=== PATIENT | female | born 1940 | race American Indian/Alaskan Native ===

== ENCOUNTER 2017-07-28 21:04 | Emergency (ER) | payer BC, MEDICARE, OTHER ==
[2017-07-28 21:47] VITALS: BMI 28.1
[2017-07-28 22:06] VITALS: RESP 18; TEMP 97.8
--- NOTE | 2017-07-28 22:17 | ED PDOC ---
Arrival/HPI - General Chief Complaint: Dizziness/Lightheaded Time Seen by Provider: 07/28/17 21:40 Historian: Patient - History of Present Illness Narrative History of Present Illness (Text): 07/28/17 22:16 A 76 year old female presents to the emergency department from home complaining of dizziness. Patient was bending over and felt room spinning sensation, dizziness and lost her balance. Denies hitting her head or loss of consciousness. Patient denies any pain. Dizziness sensation lasting about 10 minutes. Patient reports she is able to walk, but concerned because she still feels pressure at this left side of head, worried she is having a stroke. Patient denies any other complaints at this time. Symptom Onset: Sudden Symptom Course: Unchanged Activities at Onset: Rest Context: Home Past Medical History - Provider Review Nursing Documentation Reviewed: Yes - Infectious Disease Hx of Infectious Diseases: None - Hematological/Oncological Hx Anemia: Yes - Psychiatric Hx Substance Use: No - Surgical History Hx Tonsillectomy: Yes - Anesthesia Hx Anesthesia: Yes Family/Social History - Physician Review Nursing Documentation Reviewed: Yes Family/Social History: No Known Family HX Smoking Status: Never Smoked Hx Alcohol Use: No Hx Substance Use: No Allergies/Home Meds Allergies/Adverse Reactions: Allergies No Known Allergies Allergy (Verified 08/09/15 11:52) Home Medications: Home Meds Medication Instructions Recorded Confirmed Atorvastatin [Lipitor] 40 mg PO HS 08/09/15 08/09/15 Review of Systems - Physician Review All systems were reviewed & negative as marked: Yes - Review of Systems Constitutional: absent: Fevers Neurological: Dizziness. absent: Gait Changes Physical Exam Vital Signs Reviewed: Yes Vital Signs Temp Pulse Resp BP Pulse Ox 07/29/17 00:30 60 18 135/67 100 07/29/17 00:00 59 L 18 142/67 100 07/28/17 22:00 97.8 F 62 18 126/66 98 Temperature: Afebrile Blood Pressure: Normal Pulse: Regular Respiratory Rate: Normal Appearance: Positive for: Well-Appearing, Non-Toxic, Comfortable Pain Distress: None Mental Status: Positive for: Alert and Oriented X 3 - Systems Exam Head: Present: Atraumatic, Normocephalic Pupils: Present: PERRL Extroacular Muscles: Present: Other (horizontal nystagmus) Conjunctiva: Present: Normal Mouth: Present: Moist Mucous Membranes Neck: Present: Normal Range of Motion Respiratory/Chest: Present: Clear to Auscultation, Good Air Exchange. No: Respiratory Distress, Accessory Muscle Use Cardiovascular: Present: Regular Rate and Rhythm, Normal S1, S2. No: Murmurs Abdomen: Present: Normal Bowel Sounds. No: Tenderness, Distention, Peritoneal Signs Back: Present: Normal Inspection Upper Extremity: Present: Normal Inspection. No: Cyanosis, Edema Lower Extremity: Present: Normal Inspection. No: Edema Neurological: Present: GCS=15, CN II-XII Intact, Speech Normal, Other ( horizontal nystagmus) Skin: Present: Warm, Dry, Normal Color. No: Rashes Psychiatric: Present: Alert, Oriented x 3, Normal Insight, Normal Concentration Medical Decision Making ED Course and Treatment: 07/28/17 22:14 Impression: A 76 year old female with dizziness. Plan: -- CT head -- chest xray -- labs -- Reassess and disposition Progress Notes: 07/28/17 23:13 chest xray: No active disease, as read by me. EKG: Ordered, reviewed, and independently interpreted the EKG. Rate : 62 BPM Rhythm : NSR Interpretation : Normal intervals, normal axis Comparison : No previous EKG for comparison. CT Head Without Intravenous Contrast IMPRESSION: 1. There is a small hypodense lacunar infarct within the anterior limb of the right internal capsule, indeterminate in acuity. Otherwise, there is no acute territorial type infarct. If further evaluation is clinically indicated, an MRI of the brain is recommended. 2. No acute intracranial hemorrhage. 3. There are scattered foci of hypodensity within the cerebral white matter, likely representing small vessel ischemic disease in a patient this age. 4. Mild atrophy. 5. Mild effusions are visualized within the left mastoid air cells, suggestive of mastoiditis in the absence of trauma. 6. Paranasal sinus disease is noted above. Dictated and Authenticated by: Ismael Tripathi MD 07/28/2017 11:54 PM Eastern Time ([place] & [place]) - Lab Interpretations Lab Results: 07/28/17 22:15 07/28/17 22:15 Lab Results 07/28/17 22:15: Sodium 144, Potassium 4.6, Chloride 108 H, Carbon Dioxide 25, Anion Gap 15, BUN 16, Creatinine 0.8, Est GFR ( Amer) > 60, Est GFR (Non- Af Amer) > 60, Random Glucose 94, Calcium 9.7, Total Bilirubin 0.9, AST 29, ALT 25, Alkaline Phosphatase 56, Lactate Dehydrogenase 657, Total Creatine Kinase 88 , Troponin I < 0.01, Total Protein 7.1, Albumin 3.7, Globulin 3.4, Albumin/ Globulin Ratio 1.1 07/28/17 22:15: PT 11.6, INR 1.02 07/28/17 22:15: WBC 3.5 L, RBC 3.69, Hgb 10.7 L, Hct 34.0 L, MCV 92.1, MCH 29.0 , MCHC 31.5, RDW 13.5, Plt Count 207, MPV 12.1 H, Gran % 55.4, Lymph % (Auto) 31.8, [place] % (Auto) 10.8 H, Eos % (Auto) 1.7, Baso % (Auto) 0.3, Gran # 1.95, Lymph # (Auto) 1.1 L, [place] # (Auto) 0.4, Eos # (Auto) 0.1, Baso # (Auto) 0.01 I have reviewed the lab results: Yes - RAD Interpretation Radiology Orders: 07/28/17 22:01 HEAD W/O CONTRAST [CT] Stat CHEST TWO VIEWS (PA/LAT) [RAD] Stat - PA / COPY COORDINATOR / Resident Statement MD/DO has reviewed & agrees with the documentation as recorded. - Scribe Statement The provider has reviewed the documentation as recorded by the Noemy Braker Provider Scribe Attestation: All medical record entries made by the Samanibchayito were at my direction and personally dictated by me. I have reviewed the chart and agree that the record accurately reflects my personal performance of the history, physical exam, medical decision making, and the department course for this patient. I have also personally directed, reviewed, and agree with the discharge instructions and disposition. Disposition/Present on Arrival - Present on Arrival Any Indicators Present on Arrival: No History of DVT/PE: No History of Uncontrolled Diabetes: No Urinary Catheter: No History of Decub. Ulcer: No History Surgical Site Infection Following: None - Disposition Have Diagnosis and Disposition been Completed?: Yes Diagnosis: Vertigo Disposition: HOME/ ROUTINE Disposition Time: 00:12 Patient Plan: Discharge Condition: GOOD Discharge Instructions (ExitCare): Vertigo (ED), Benign Paroxysmal Positional Vertigo (ED) Additional Instructions: Mrs Israel- So sorry you experienced this problem this afternoon. Your tests are all essentially normal. This was an episode of vertigo. Please follow up with your doctor later this week. Change positions slowly and deliberately and avoid bending over or rapid head motions as much as possible. Return to us if worse or you get any new symptoms. Best- Dr. Cleveland Barrera Referrals: Stephon Camargo, DO [Primary Care Provider] - Follow up with primary Forms: [employer] (Pashto)
[2017-07-28 22:40] LABS: INR 1.02 (0.93-1.08); PROTHROMBIN TIME 11.6 SECONDS (9.4-12.5)
[2017-07-28 22:45] LABS: BASO # 0.01 K/mm3 (0.0-2.0); BASO % 0.3 % (0.0-3.0); EOS # 0.1 (0.0-0.7); EOS % 1.7 % (1.5-5.0); GRAN # 1.95 (1.4-6.5); GRAN % 55.4 % (50.0-68.0); HEMOGLOBIN 10.7 g/dL (12.0-16.0); LYMPH # 1.1 (1.2-3.4); LYMPH % 31.8 % (22.0-35.0); MEAN CELL VOLUME 92.1 fl (80.0-105.0); MEAN CORPUSCULAR HGB CONC 31.5 g/dl (31.0-37.0); MEAN PLATELET VOLUME 12.1 fl (7.0-11.0); MONO # 0.4 (0.1-0.6); MONO % 10.8 % (1.0-6.0); RBC 3.69 10^6/uL (3.5-6.1); RED CELL DISTRIBUTION WIDTH 13.5 % (11.5-14.5); WHITE BLOOD COUNT 3.5 10^3/ul (4.5-11.0)
[2017-07-28 22:46] LABS: ALB/GLOB RATIO 1.1 (1.1-1.8); ALBUMIN 3.7 g/dL (3.0-4.8); ALT/SGPT 25 U/L (7-56); AST/SGOT 29 U/L (14-36); BLOOD UREA NITROGEN 16 mg/dL (7-21); CALCIUM 9.7 mg/dL (8.4-10.5); GFR AFRICAN-AMERICAN > 60; GFR NON-AFRICAN AMERICAN > 60
[2017-07-28 22:48] LABS: TROPONIN I < 0.01 ng/mL
--- NOTE | 2017-07-28 23:54 | CT ---
EXAM: CT Head Without Intravenous Contrast EXAM DATE/TIME: 07/28/2017 10:01 PM CLINICAL HISTORY: The patient age is 76 years old and is female; Signs and symptoms; Dizziness; Additional info: Dizzy, vertigo Facility exam id and description: Ct heads head w/o contrast TECHNIQUE: Axial computed tomography images of the head/brain without intravenous contrast. All CT scans at this facility use one or more dose reduction techniques, viz.: automated exposure control; ma/kV adjustment per patient size (including targeted exams where dose is matched to indication; i.e. head); or iterative reconstruction technique. Coronal and sagittal reformatted images were created and reviewed. COMPARISON: No relevant prior studies available. FINDINGS: Brain: There is a small hypodense lacunar infarct within the anterior limb of the right internal capsule, indeterminate in acuity. Otherwise, there is no acute territorial type infarct. There are scattered foci of hypodensity within the cerebral white matter, likely representing small vessel ischemic disease in a patient this age. The acuity of the white matter disease is indeterminate. The white-velazquez differentiation is preserved demonstrating no acute territorial type infarct. There is mild prominence of the ventricles and sulci, compatible with atrophy. No acute intracranial hemorrhage is seen. Midline shift: There is no midline shift. Ventricles: See above. Bones/joints: The calvarium demonstrates no evidence for a depressed fracture. Soft tissues: No acute abnormality. Vasculature: There is atherosclerotic calcification of the cavernous internal carotid arteries. Sinuses: There is opacification of a left mid ethmoid air cell. Mastoid air cells: Mild effusions are visualized within the left mastoid air cells, suggestive of mastoiditis in the absence of trauma. IMPRESSION: 1. There is a small hypodense lacunar infarct within the anterior limb of the right internal capsule, indeterminate in acuity. Otherwise, there is no acute territorial type infarct. If further evaluation is clinically indicated, an MRI of the brain is recommended. 2. No acute intracranial hemorrhage. 3. There are scattered foci of hypodensity within the cerebral white matter, likely representing small vessel ischemic disease in a patient this age. 4. Mild atrophy. 5. Mild effusions are visualized within the left mastoid air cells, suggestive of mastoiditis in the absence of trauma. 6. Paranasal sinus disease is noted above.
[2017-07-29 00:05] VITALS: O2SAT 100
[2017-07-29 00:31] VITALS: BP 135/67; PULSE 60
--- NOTE | 2017-07-29 10:10 | RAD ---
HISTORY: dizzy, weak COMPARISON: No prior. TECHNIQUE: Chest PA and lateral FINDINGS: LUNGS: No active pulmonary disease. PLEURA: No significant pleural effusion identified. No pneumothorax apparent. CARDIOVASCULAR: Normal. OSSEOUS STRUCTURES: No significant abnormalities. VISUALIZED UPPER ABDOMEN: Normal. OTHER FINDINGS: None. IMPRESSION: No active disease.
--- NOTE | 2017-07-29 18:12 | CARD ---
APPROVED REPORT EKG Measurement Heart [id number] <Conclusion> Sinus rhythm with frequent APCs Otherwise normal ECG
== END 2017-07-29 00:32 | disposition home or self-care (01) ==
LOC: ED 21:04
DX: R42 Dizziness and giddiness (principal)

== ENCOUNTER 2018-01-17 11:12 | Emergency (ER) | payer MEDICARE, OTHER ==
--- NOTE | 2018-01-17 11:46 | ED PDOC ---
Arrival/HPI - General Time Seen by Provider: 01/17/18 11:17 Historian: Patient - History of Present Illness Narrative History of Present Illness (Text): 01/17/18 11:37 A 77 year old female whose past medical history includes hyperlipidemia, presents to the emergency department complaining of mid-sternal/ epigastric pain that moves down towards the mid-abdomen and radiates toward the sides. The patient notes that she has been experiencing theses symptoms intermittently for a few weeks. She states that the pain occurs mostly at night and in the morning. The patient states that the pain is present with and without eating food. She reports that she has seen her PMD regarding her symptoms for which she was prescribed Omeprazole 40mg. She notes that the medication makes her swell when she takes it. The patient also complaints of 3 month duration swelling of her extremities. Currently, she notes that her left ankle and right hand have been swollen for a few days. The patient states that she has seen an Bulb Sorter concerning her symptoms and she was prescribed Cetirizine for the swelling. The patient denies fevers, chills, headache, dizziness, sore throat, cough, shortness of breath, dyspnea on exertion, nausea, vomiting, diarrhea, neck/back pain, urinary/bowel changes or any other complaint. PMD: Dr. Mcmahan Time/Duration: Other (Several Weeks) Symptom Onset: Sudden Symptom Course: Unchanged Activities at Onset: Rest, Light Context: Home Past Medical History - Provider Review Nursing Documentation Reviewed: Yes - Infectious Disease Hx of Infectious Diseases: None - Hematological/Oncological Hx Anemia: Yes - Psychiatric Hx Substance Use: No - Surgical History Hx Tonsillectomy: Yes - Anesthesia Hx Anesthesia: Yes Family/Social History - Physician Review Nursing Documentation Reviewed: Yes Family/Social History: No Known Family HX Smoking Status: Never Smoked Hx Alcohol Use: No Hx Substance Use: No Allergies/Home Meds Allergies/Adverse Reactions: Allergies No Known Allergies Allergy (Verified 08/09/15 11:52) Home Medications: Home Meds Medication Instructions Recorded Confirmed Atorvastatin [Lipitor] 40 mg PO HS 08/09/15 08/09/15 Review of Systems - Physician Review All systems were reviewed & negative as marked: Yes - Review of Systems Constitutional: absent: Fevers, Night Sweats Respiratory: absent: SOB, Cough Cardiovascular: Chest Pain (Epigastric/mid-sternal chest discomfort radiating to the mid abdomen and sides.). absent: GARCIA Gastrointestinal: Abdominal Pain (Epigastric/mid-sternal pain radiates to mid abdomen and sides). absent: Stool Changes, Diarrhea, Nausea, Vomiting Genitourinary Female: absent: Urine Output Changes Musculoskeletal: absent: Back Pain, Neck Pain Neurological: absent: Headache, Dizziness Physical Exam Vital Signs Reviewed: Yes Vital Signs Temp Pulse Resp BP Pulse Ox 01/17/18 16:06 97.9 F 87 19 122/67 97 01/17/18 11:57 98.0 F 84 18 188/77 H 100 Temperature: Afebrile Blood Pressure: Hypertensive Pulse: Regular Respiratory Rate: Normal Appearance: Positive for: Well-Appearing, Non-Toxic, Comfortable Pain Distress: None Mental Status: Positive for: Alert and Oriented X 3 - Systems Exam Head: Present: Atraumatic, Normocephalic Pupils: Present: PERRL Extroacular Muscles: Present: EOMI Conjunctiva: Present: Normal Mouth: Present: Moist Mucous Membranes Neck: Present: Normal Range of Motion Respiratory/Chest: Present: Clear to Auscultation, Good Air Exchange. No: Respiratory Distress, Accessory Muscle Use Cardiovascular: Present: Regular Rate and Rhythm, Normal S1, S2. No: Murmurs Abdomen: No: Tenderness, Distention, Peritoneal Signs Back: Present: Normal Inspection Upper Extremity: Present: Normal ROM, NORMAL PULSES, Swelling (Right hand swelling). No: Tenderness Lower Extremity: Present: NORMAL PULSES, Normal ROM, Swelling (Left ankle swelling). No: Tenderness Neurological: Present: GCS=15, CN II-XII Intact, Speech Normal Skin: Present: Warm, Dry, Normal Color. No: Rashes Psychiatric: Present: Alert, Oriented x 3, Normal Insight, Normal Concentration Medical Decision Making ED Course and Treatment: 01/17/18 11:48 Impression: A 77 year old female presents to the emergency department complaining of several week duration epigastric/mid-sternal chest discomfort radiating to the mid abdomen and sides. She also complains of left ankle and right hand swelling. Differential Diagnosis included but are not limited to: Gastritis; Possible Allergic Reaction Plan: -- EKG -- Chest X-ray -- Labs -- Pepcid, Lidocaine Viscous 2%, Elixir, Maalox Plus -- Reassess and disposition Progress Notes: 01/17/18 11:51 EKG: Ordered, reviewed, and independently interpreted the EKG. Rate : 90 BPM Rhythm : NSR Interpretation : No ST elevations. Comparison : No change from 07/28/2017 Chest X-ray Dictator : Gil Rodriguez MD Report Date : 01/17/2018 12:34:32 IMPRESSION: No active disease 01/17/18 15:47: Swelling of the hands and feet have significantly improved. Swelling on lip is stable. I have discussed the results and plan with the patient, who expresses understanding. Patient given the opportunity to ask question, all questions were answered and there is agreement with the plan to discharge the patient home with prescription for a Medrol Dose Pack and instructed to continue taking antacids as prescribed by PMD. Patient is stable for discharge. Patient was instructed to follow up with physician/clinic in 1-2 days or return if symptoms persist/worsen or new concerning symptoms arise. - Lab Interpretations Lab Results: 01/17/18 12:13 01/17/18 12:13 Lab Results 01/17/18 12:13: Sodium 138, Potassium 4.1, Chloride 104, Carbon Dioxide 25, Anion Gap 13, BUN 15, Creatinine 0.7, Est GFR ( Amer) > 60, Est GFR (Non- Af Amer) > 60, Random Glucose 137 H, Calcium 9.0, Magnesium 1.8, Total Bilirubin 1.2, AST 27, ALT 28, Alkaline Phosphatase 64, Lactate Dehydrogenase 711 H, Total Creatine Kinase 50, Troponin I < 0.01, NT-Pro-B Natriuret Pep 70.2 , Total Protein 6.8, Albumin 3.7, Globulin 3.1, Albumin/Globulin Ratio 1.2, Lipase 21 L 01/17/18 12:13: WBC 4.7 D, RBC 3.95, Hgb 11.4 L, Hct 34.8 L, MCV 88.1 D, MCH 28.9, MCHC 32.8, RDW 13.3, Plt Count 256, MPV 10.6, Gran % 81.3 H, Lymph % (Auto ) 15.9 L, [place] % (Auto) 2.8, Eos % (Auto) 0.0 L, Baso % (Auto) 0.0, Gran # 3.79 , Lymph # (Auto) 0.7 L, [place] # (Auto) 0.1, Eos # (Auto) 0.0, Baso # (Auto) 0.00 I have reviewed the lab results: Yes - RAD Interpretation Radiology Orders: 01/17/18 11:47 CHEST PORTABLE [RAD] Stat - EKG Interpretation Interpreted by ED Physician: Yes Type: 12 lead EKG - Medication Orders Current Medication Orders: Discontinued Medications Al Hydrox/Mg Hydrox/Simethicone (Maalox Plus 30 Ml) 30 ml PO STAT STA Stop: 01/17/18 11:48 Last Admin: 01/17/18 12:28 Dose: 30 ml Belladonna/Phenobarbital ( Elixir) 5 ml PO STAT STA Stop: 01/17/18 11:48 Last Admin: 01/17/18 12:29 Dose: 5 ml Diphenhydramine HCl (Benadryl) 50 mg IVP STAT STA Stop: 01/17/18 12:58 Last Admin: 01/17/18 14:22 Dose: 50 mg IVP Administration Document 01/17/18 14:22 [email or web address] (Rec: 01/17/18 14:23 [email or web address] [id number]) Charges for Administration # of IVP Administrations 1 Famotidine (Pepcid 20mg/50ml Premix) 20 mg in 50 mls @ 100 mls/hr IVPB STAT STA Stop: 01/17/18 12:16 Last Admin: 01/17/18 12:29 Dose: 100 mls/hr eMAR Start Stop Document 01/17/18 12:29 [email or web address] (Rec: 01/17/18 12:29 [email or web address] [id number]) Intravenous Solution Start Date 01/17/18 Start Time 12:29 End Date 01/17/18 Lidocaine HCl (Lidocaine 2% Viscous) 15 ml PO STAT STA Stop: 01/17/18 11:48 Last Admin: 01/17/18 12:29 Dose: 15 ml Prednisone (Prednisone Tab) 60 mg PO STAT ONE Stop: 01/17/18 12:58 Last Admin: 01/17/18 14:22 Dose: 60 mg - Scribe Statement The provider has reviewed the documentation as recorded by the Noemy Olivares Provider Scribe Attestation: All medical record entries made by the Samanibchayito were at my direction and personally dictated by me. I have reviewed the chart and agree that the record accurately reflects my personal performance of the history, physical exam, medical decision making, and the department course for this patient. I have also personally directed, reviewed, and agree with the discharge instructions and disposition. Disposition/Present on Arrival - Present on Arrival Any Indicators Present on Arrival: No History of DVT/PE: No History of Uncontrolled Diabetes: No Urinary Catheter: No History Surgical Site Infection Following: None - Disposition Have Diagnosis and Disposition been Completed?: Yes Diagnosis: Chest pain, Abdominal pain, Swelling Disposition: HOME/ ROUTINE Disposition Time: 16:06 Patient Plan: Discharge Condition: IMPROVED Discharge Instructions (ExitCare): Swelling, Stomach Ache and Stomach Upset, Chest Pain (ED) Additional Instructions: DORENE PARRISH, thank you for letting us take care of you today. Your provider was Austin Littlejohn DO and you were treated for Chest pain, Abdominal Pain, Allergic Reaction, Swelling. The emergency medical care you received today was directed at your acute symptoms. If you were prescribed any medication, please fill it and take as directed. It may take several days for your symptoms to resolve. Return to the Emergency Department if your symptoms worsen, do not improve, or if you have any other problems. Please contact your doctor or call one of the physicians/clinics you have been referred to that are listed on the Patient Visit Information form that is included in your discharge packet. Bring any paperwork you were given at discharge with you along with any medications you are taking to your follow up visit. Our treatment cannot replace ongoing medical care by a primary care provider outside of the emergency department. Thank you for allowing the [facility] team to be part of your care today. If you had an X-Ray or CT scan: A Radiologist will review the ED reading if any change in treatment is needed we will contact you. If you had a blood, urine, or wound culture: It will take several days for the results, if any change in treatment is needed we will contact you. If you had an STI test: It will take 48 hours for the results. Please call after 1 week if you have not heard back. Prescriptions: DiphenhydrAMINE [Benadryl] 50 mg PO Q6 #30 cap Famotidine [Pepcid] 20 mg PO DAILY #30 tab Methylprednisolone [Medrol Dose Pack (21 tabs)] 4 mg PO DAILY #21 mg Referrals: Non [facility] Provider, [Non-Staff] - Follow up with primary Forms: [employer] (Yemeni)
[2018-01-17] MEDS ORDERED: Atrop/Hyosc/Scopal/PB Elixir (120 ml) PO STA (11:47)
[2018-01-17] MEDS ORDERED: Alum-Mag Hydrox-Simethicone Susp (30 mL) PO STA (11:47)
[2018-01-17] MEDS ORDERED: Famotidine 20mg/50ml 20 MG/50 ML BAG IVPB STA (11:47)
[2018-01-17 11:57] VITALS: BMI 28.1
[2018-01-17 12:34] LABS: GRAN # 3.79 (1.4-6.5); GRAN % 81.3 % (50.0-68.0); HEMOGLOBIN 11.4 g/dL (12.0-16.0); LYMPH # 0.7 (1.2-3.4); LYMPH % 15.9 % (22.0-35.0); MEAN CELL VOLUME 88.1 fl (80.0-105.0); MEAN CORPUSCULAR HEMOGLOBIN 28.9 pg (25.0-35.0); MEAN CORPUSCULAR HGB CONC 32.8 g/dl (31.0-37.0); MEAN PLATELET VOLUME 10.6 fl (7.0-11.0); MONO # 0.1 (0.1-0.6); MONO % 2.8 % (1.0-6.0); RBC 3.95 10^6/uL (3.5-6.1); RED CELL DISTRIBUTION WIDTH 13.3 % (11.5-14.5); WHITE BLOOD COUNT 4.7 10^3/ul (4.5-11.0)
--- NOTE | 2018-01-17 12:36 | RAD ---
Date of service: 01/17/2018 HISTORY: chest/ad pain COMPARISON: No prior. FINDINGS: LUNGS: No active pulmonary disease. PLEURA: No significant pleural effusion identified, no pneumothorax apparent. CARDIOVASCULAR: Normal. OSSEOUS STRUCTURES: No significant abnormalities. VISUALIZED UPPER ABDOMEN: Normal. OTHER FINDINGS: None. IMPRESSION: No active disease.
[2018-01-17 12:41] LABS: ALB/GLOB RATIO 1.2 (1.1-1.8); ALBUMIN 3.7 g/dL (3.0-4.8); ALT/SGPT 28 U/L (7-56); AST/SGOT 27 U/L (14-36); BLOOD UREA NITROGEN 15 mg/dL (7-21); GFR AFRICAN-AMERICAN > 60; GFR NON-AFRICAN AMERICAN > 60; LIPASE 21 U/L (23-300)
[2018-01-17 12:53] LABS: B-TYPE NATRIURETIC PEPTIDE 70.2 pg/mL (0-450); TROPONIN I < 0.01 ng/mL
[2018-01-17] MEDS ORDERED: DiphenhydrAMINE 50 mg/ml Inj IVP STA (12:57)
--- NOTE | 2018-01-17 14:43 | CARD ---
APPROVED REPORT Date of service: 01/17/2018 EKG Measurement Heart [id number] <Conclusion> Sinus rhythm with premature atrial complexes Otherwise normal ECG
[2018-01-17 16:06] VITALS: BP 122/67; PULSE 87; RESP 19; TEMP 97.9; O2SAT 97
== END 2018-01-17 16:08 | disposition home or self-care (01) ==
LOC: ED 11:12
DX: R07.9 Chest pain, unspecified (principal); R10.9 Unspecified abdominal pain; M79.89 Other specified soft tissue disorders; D64.9 Anemia, unspecified
CPT/HCPCS: 71045; 80053; 82550; 83615; 83690; 83735; 83880; 84484; 85025; 93005; 96374; 99284; J1200

== ENCOUNTER 2018-02-04 11:45 | Observation (INO) | payer MEDICARE ==
[2018-02-04] MEDS ORDERED: DiphenhydrAMINE 50 mg/ml Inj IVP STA ×2 (12:15→15:08)
--- NOTE | 2018-02-04 13:09 | ED PDOC ---
Arrival/HPI - General Chief Complaint: Eye Problem Time Seen by Provider: 02/04/18 12:14 Historian: Patient - History of Present Illness Narrative History of Present Illness (Text): 02/04/18 13:06 77-year-old female presents today with a generalized allergic reaction. Patient states she has been dealing with hives for the past few months. Patient states she has been seen by an motion picture cameraman in by her primary care physician multiple times and was told that there is no explanation for her hives at this time. Patient states she is not currently on any steroidal. Patient states that she frequently gets hives on the face and the arms back and legs. Patient states last night's the hives started on the left eye and today when she woke up her eye was swollen shut. She denies any fevers or chills. Patient complaining of pruritus. No medications have been taken at home. Patient states it has happened before when her face will swell as well as her tongue. She denies any tongue swelling today. Denies any difficulty breathing or swallowing. She denies chest pain or shortness of breath. Denies dizziness or weakness. No other complaints. Past Medical History - Provider Review Nursing Documentation Reviewed: Yes - Travel History Have you recently traveled outside [place] w/in the past 3 mons?: No - Infectious Disease Hx of Infectious Diseases: None - Reproductive Menopause: Yes - Hematological/Oncological Hx Anemia: Yes - Psychiatric Hx Substance Use: No - Surgical History Hx Tonsillectomy: Yes - Anesthesia Hx Anesthesia: Yes Family/Social History - Physician Review Nursing Documentation Reviewed: Yes Family/Social History: Unknown Family HX Smoking Status: Never Smoked Hx Alcohol Use: No Hx Substance Use: No Allergies/Home Meds Allergies/Adverse Reactions: Allergies No Known Allergies Allergy (Verified 08/09/15 11:52) Home Medications: Home Meds Medication Instructions Recorded Confirmed Atorvastatin [Lipitor] 40 mg PO HS 08/09/15 02/04/18 Review of Systems - Review of Systems Constitutional: absent: Fatigue, Fevers Eyes: Other (left eye swelling). absent: Vision Changes, Photophobia Respiratory: absent: SOB, Cough Cardiovascular: absent: Chest Pain, Palpitations Gastrointestinal: absent: Abdominal Pain, Nausea, Vomiting Musculoskeletal: absent: Arthralgias Skin: Rash, Pruritis Neurological: absent: Headache, Dizziness Psychiatric: absent: Anxiety, Depression Physical Exam Vital Signs Reviewed: Yes Vital Signs Temp Pulse Resp BP Pulse Ox 02/04/18 21:59 98.4 F 80 18 126/67 98 02/04/18 21:00 98.4 F 75 18 124/63 98 02/04/18 19:53 70 18 129/66 97 02/04/18 14:44 72 18 126/64 97 02/04/18 11:55 98.4 F 89 18 130/66 99 Temperature: Afebrile Blood Pressure: Normal Pulse: Regular Respiratory Rate: Normal Appearance: Positive for: Well-Appearing, Non-Toxic, Comfortable Pain Distress: None Mental Status: Positive for: Alert and Oriented X 3 - Systems Exam Head: Present: Other (+ swelling and redness noted to left upper eye lid. + swelling noted to left cheek. ) Pupils: Present: PERRL Extroacular Muscles: Present: EOMI Conjunctiva: Present: Normal. No: Injected Ears: Present: Normal, NORMAL TM Mouth: Present: Moist Mucous Membranes, Normal Tounge, Other (+ upper lip edema) . No: Drooling, Trismus, Normal Lips Pharnyx: Present: Normal. No: TONSILS ENLARGED, Peritonsilar Swelling, Uvular Deviation, Muffled/Hoarse Voice, Strider, Soft Palate/Uvular Edema Nose (External): Present: Atraumatic Nose (Internal): Present: Normal Inspection Neck: Present: Normal Range of Motion Respiratory/Chest: Present: Clear to Auscultation, Good Air Exchange. No: Respiratory Distress, Accessory Muscle Use Cardiovascular: Present: Regular Rate and Rhythm, Normal S1, S2. No: Murmurs Abdomen: No: Tenderness Upper Extremity: Present: Other (+ large raised areas of erythema and swelling noted to both forearms. no tenderness). No: Tenderness Neurological: Present: GCS=15, Speech Normal Skin: Present: Warm, Dry, Normal Color Psychiatric: Present: Alert, Oriented x 3 Medical Decision Making ED Course and Treatment: 02/04/18 13:10 Patient is nontoxic well-appearing in no distress with stable vital signs no angioedema. Lungs are clear to auscultation bilaterally there is no wheezing noted. The airway is patent Benadryl 25 mg IV Solu-Medrol 125 mg IV Pepcid 20 mg IV pt reassessment; pt still with pruritis and swelling to left side of face, hives on arms and back. additional 25mg IV benadryl added Patient reassessment: pt now c/o irritation in the throat; cbc; wnl cMP: glucose; 179 ct neck; soft tissue; FINDINGS: Oropharynx: Unremarkable. No significant tonsillar enlargement. Hypopharynx: Unremarkable. Larynx: Unremarkable. Normal epiglottis. Trachea: Unremarkable. Retropharyngeal space: Unremarkable. Submandibular/parotid glands: Unremarkable. Glands are normal in size. Thyroid: 1.8 x 1.0 cm left thyroid hypodense lesion. Bones/joints: Degenerative changes in the spine. No acute fracture. Soft tissues: Unremarkable. Vasculature: No evidence of acute pathology. Lymph nodes: Mildly prominent lymph nodes likely reactive. Lung apices: Unremarkable as visualized. Other findings: No evidence of airway stenosis. IMPRESSION: 1. No evidence of airway stenosis. No evidence of acute pathology. I reviewed with the patient the risks of using prednisone including, AVN, glaucoma, diabetes and osteoporosis. pt is aware of and understands the risks of using steriods. case discussed with dr. meyer ; will admit observational status for continued monitoring of patients angioedema/allergic reaction; as with medications in er symptoms worsened. Impression :Allergic reaction, angioedema admit observational status Reassessment Condition: Re-examined - Lab Interpretations Lab Results: 02/04/18 19:34 02/04/18 19:34 Lab Results 02/04/18 19:34: WBC 5.4, RBC 3.73, Hgb 10.7 L, Hct 33.1 L, MCV 88.7, MCH 28.7, MCHC 32.3, RDW 14.0, Plt Count 223, MPV 11.6 H, Gran % 93.4 H, Lymph % (Auto) 5.8 L, Floyd % (Auto) 0.2 L, Eos % (Auto) 0.0 L, Baso % (Auto) 0.6, Gran # 5.01, Lymph # (Auto) 0.3 L, Floyd # (Auto) 0.0 L, Eos # (Auto) 0.0, Baso # (Auto) 0.03 , Neutrophils % (Manual) 87 H, Band Neutrophils % 3 H, Lymphocytes % (Manual) 9 L, Monocytes % (Manual) 1, Platelet Evaluation Normal, Hypochromasia 1+, Anisocytosis (manual) Slight, Target Cells Slight, Stomatocytes 1+, Rouleaux 1+ 02/04/18 19:34: Sodium 139, Potassium 4.8, Chloride 105, Carbon Dioxide 24, Anion Gap 14, BUN 12, Creatinine 0.7, Est GFR ( Amer) > 60, Est GFR (Non- Af Amer) > 60, Random Glucose 179 H, Calcium 8.9, Total Bilirubin 0.7, AST 35, ALT 34, Alkaline Phosphatase 61, Total Protein 6.8, Albumin 3.8, Globulin 3.1, Albumin/Globulin Ratio 1.2 - RAD Interpretation Radiology Orders: 02/04/18 18:19 NECK SOFT TISSUE W/O CONTRAST [CT] Stat - Medication Orders Current Medication Orders: Loratadine (Claritin) 10 mg PO DAILY JOSEPHINE Methylprednisolone (Solu-Medrol) 40 mg IV Q12 JOSEPHINE Montelukast Sodium (Singulair) 10 mg PO DAILY JOSEPHINE Discontinued Medications Diphenhydramine HCl (Benadryl) 25 mg IVP STAT STA Stop: 02/04/18 12:16 Last Admin: 02/04/18 12:47 Dose: 25 mg IVP Administration Document 02/04/18 12:47 [place] (Rec: 02/04/18 12:47 [place] [id number]) Charges for Administration # of IVP Administrations 1 Diphenhydramine HCl (Benadryl) 25 mg IVP STAT STA Stop: 02/04/18 15:09 Last Admin: 02/04/18 15:47 Dose: 25 mg IVP Administration Document 02/04/18 15:47 [place] (Rec: 02/04/18 16:04 [id number] Charges for Administration # of IVP Administrations 1 Famotidine (Pepcid) 20 mg IVP STAT STA Stop: 02/04/18 12:16 Last Admin: 02/04/18 12:47 Dose: 20 mg IVP Administration Document 02/04/18 12:47 [place] (Rec: 02/04/18 12:47 [place] [id number]) Charges for Administration # of IVP Administrations 1 Methylprednisolone (Solu-Medrol) 125 mg IVP STAT STA Stop: 02/04/18 12:16 Last Admin: 02/04/18 12:48 Dose: 125 mg IVP Administration Document 02/04/18 12:48 [place] (Rec: 02/04/18 12:48 [place] [id number]) Charges for Administration # of IVP Administrations 1 Disposition/Present on Arrival - Present on Arrival Any Indicators Present on Arrival: No History of DVT/PE: No History of Uncontrolled Diabetes: No Urinary Catheter: No History of Decub. Ulcer: No History Surgical Site Infection Following: None - Disposition Have Diagnosis and Disposition been Completed?: Yes Diagnosis: Allergic reaction, Urticaria Disposition Time: 17:58 Patient Plan: Discharge Patient Problems: Current Active Problems Problem Status Onset Allergic reaction Acute Urticaria Acute Condition: GOOD
[2018-02-04 19:52] LABS: ALB/GLOB RATIO 1.2 (1.1-1.8); ALBUMIN 3.8 g/dL (3.0-4.8); ALT/SGPT 34 U/L (7-56); AST/SGOT 35 U/L (14-36); BLOOD UREA NITROGEN 12 mg/dL (7-21); CALCIUM 8.9 mg/dL (8.4-10.5); GFR AFRICAN-AMERICAN > 60; GFR NON-AFRICAN AMERICAN > 60
[2018-02-04 20:11] LABS: HEMOGLOBIN 10.7 g/dL (12.0-16.0); RBC 3.73 10^6/uL (3.5-6.1); WHITE BLOOD COUNT 5.4 10^3/ul (4.5-11.0)
[2018-02-04 20:12] LABS: BASO # 0.03 K/mm3 (0.0-2.0); BASO % 0.6 % (0.0-3.0); GRAN # 5.01 (1.4-6.5); GRAN % 93.4 % (50.0-68.0); LYMPH # 0.3 (1.2-3.4); LYMPH % 5.8 % (22.0-35.0); MEAN CELL VOLUME 88.7 fl (80.0-105.0); MEAN CORPUSCULAR HEMOGLOBIN 28.7 pg (25.0-35.0); MEAN CORPUSCULAR HGB CONC 32.3 g/dl (31.0-37.0); MEAN PLATELET VOLUME 11.6 fl (7.0-11.0); MONO % 0.2 % (1.0-6.0); PLATELET COUNT 223 10^3/uL (120.0-450.0)
[2018-02-04 21:40] LABS: ANISOCYTOSIS SLIGHT; BAND 3 % (0-2); LYMPHOCYTE 9 % (22.0-35.0); MONOCYTE 1 % (1.0-6.0); NEUTROPHIL 87 % (50.0-70.0); PLATELET ESTIMATE NORMAL (NORMAL)
[2018-02-04 21:41] LABS: HYPOCHROMIA 1+; ROULEAU 1+; STOMATOCYTE 1+; TARGET CELLS SLIGHT
[2018-02-04] MEDS: MethylPREDNISolone 40 mg Vial IV SCH (22:11)
[2018-02-04 23:50] VITALS: TEMP 97.8; BMI 28.9
--- NOTE | 2018-02-05 06:09 | HP ---
Copied To: Aftab Nicolas MD Attending MD: Aftab Nicolas MD HISTORY OF PRESENT ILLNESS: Patient is a 77-year-old female who came to the emergency room because of having generalized hives going on for last 2 to 3 months. She saw car coupler, multiple things were tried, but she still get hives. Her primary care has tried different medication with no significant relief. She is still getting hives intermittently. That spots of erythema generalized including her belly, back, legs, and arms. Last night, she started to have some itchiness on the face and progressed towards the left periorbital area and she woke up with significant left eye swelling. Denies any sore throat. No cough. No congestion. No fever. No chills. No recent use of any unusual medication or food. No history of fever or chills. No shortness of breath. No nausea, vomiting, or diarrhea. No abdominal pain. Complained of some discomfort in her throat and tongue. PAST MEDICAL HISTORY: Significant for hypertension and history of anemia. PAST SURGICAL HISTORY: Significant for tonsillectomy. ALLERGIES: SHE IS NOT ALLERGIC TO ANY MEDICATION. MEDICATIONS AT HOME: She is on Lipitor 40 mg daily, Pepcid 20 mg daily, and Benadryl p.r.n. SOCIAL HISTORY: She denies smoking, drinking, or alcohol use. PHYSICAL EXAMINATION: GENERAL: She is awake and alert. According to ER physician, her eye swelling significantly improved, but still have some left periorbital swelling. VITAL SIGNS: She is afebrile, pulse 75, respirations 18, blood pressure 124/63. LUNGS: Bilateral good airflow. No rhonchi or crackle. HEART: S1 and S2 audible. ABDOMEN: Soft and nontender. No rebound. No guarding. NEUROLOGIC: Patient is awake, alert, oriented, able to communicate. LABORATORY EXAM: WBC 5.4, hemoglobin 10.7, hematocrit 33.1, platelet 223. Chemistry: Sodium 139, potassium 4.8, chloride 105, CO2 of 25, BUN 12, creatinine 0.7, blood sugar 179. ASSESSMENT: 1. Intermittent allergic reaction, etiology unknown. 2. History of hypertension. 3. Hyperlipidemia. PLAN: Patient will be placed in observation. We will start her on Claritin, start her on Singulair and we will give a small dose of steroid. We will follow up patient in a.m. Aftab Nicolas MD
[2018-02-05 07:18] VITALS: BP 123/63; RESP 18; O2SAT 96
[2018-02-05] MEDS: MethylPREDNISolone 40 mg Vial IV SCH (09:52)
[2018-02-05 12:53] VITALS: PULSE 77
--- NOTE | 2018-02-05 17:21 | CT ---
Date of service: 02/04/2018 PROCEDURE: CT NECK WITHOUT CONTRAST HISTORY: allergic reaction, throat irritation COMPARISON: None available. TECHNIQUE: CT of the neck without intravenous contrast. Coronal and sagittal reformats generated. Radiation dose: DLP 395.69 mGy-cm This CT exam was performed using one or more of the following dose reduction techniques: Automated exposure control, adjustment of the mA and/or kV according to patient size, and/or use of iterative reconstruction technique. FINDINGS: NASOPHARYNX: Unremarkable. SUPRAHYOID NECK: Unremarkable oropharynx, oral cavity, parapharyngeal space and retropharyngeal space. INFRAHYOID NECK: Unremarkable larynx, hypopharynx, and supraglottic space. Vocal cords intact. MASS: None. GLANDS: Parotid and submandibular glands unremarkable. Normal size thyroid gland,. There is a hypodense left thyroid lobe nodule measuring approximately 18 mm x 11.5 mm. Follow-up thyroid ultrasound could be performed for further evaluation LYMPH NODES: Few small nonspecific bilateral cervical lymph nodes are present. CERVICAL SPINE: Mild multilevel degenerative spondylosis of the cervical spine. There is a slight reversal of the normal cervical lordosis centered at approximately the C4-C5 level. OTHER FINDINGS: Airway midline and patent without evidence of stenosis. IMPRESSION: Hypodense left thyroid nodule as above. Followup thyroid ultrasound recommended. Airway midline and patent without evidence of stenosis.
--- NOTE | 2018-02-05 17:55 | DS ---
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 She states she has been having this intermittent allergic reaction with rashes for 3 months. Has seen allergists, who has done allergy test and was told she is allergic to [place] grass, dog and cats and she has none of them; however, lately has the PMD gave her steroid. She has not picked up yet. So because of her increasing facial swelling, she came to ER, so the patient was given steroid, antihistamine, did well. PHYSICAL EXAMINATION: GENERAL: On examination today, she is awake, alert, oriented, communicative. No more facial swelling. VITAL SIGNS: She is afebrile, pulse 73, respirations 18, blood pressure 123/63. LUNGS: Bilateral good airflow. No rhonchi or crackle. HEART: S1 and S2 audible. ABDOMEN: Soft. Nontender. No rebound. No guarding. NEUROLOGICAL: The patient is awake, alert, oriented, communicative, ambulatory. ASSESSMENT: 1. Intermittent allergic reaction, etiology unclear. 2. History of hypertension. 3. Hyperlipidemia. PLAN: The patient is going to be discharged today. She is given prescription of Claritin 10 mg daily in the morning, Singulair 10 mg at bedtime and she is asked to keep Medrol Dosepak as a backup and follow up with her PMD. Aftab Nicolas MD
== END 2018-02-05 13:11 | disposition home or self-care (01) ==
LOC: ED 11:45 → ERH 21:18 → 2RNO 22:50
PROVIDERS: ADMIT Internal Medicine; ATTEND Internal Medicine
DX: T78.3XXA Angioneurotic edema, initial encounter (principal); E78.5 Hyperlipidemia, unspecified; I10 Essential (primary) hypertension; Z79.899 Other long term (current) drug therapy; D64.9 Anemia, unspecified
CPT/HCPCS: 70490; 80053; 85025; 96374; 96375; 96376; 99285; G0378; J1200; J2920; J2930